=== PATIENT | male | born 1985 | race American Indian/Alaskan Native ===

== ENCOUNTER 2019-05-10 19:40 | Emergency (ER) | payer SELFPAY ==
[2019-05-10 19:55] VITALS: BP 136/94
[2019-05-10] MEDS ORDERED: ACETAMINOPHEN 500 MG TAB PO ONE (20:19)
[2019-05-10] MEDS ORDERED: IBUPROFEN 600 MG TAB PO ONE (20:19)
[2019-05-10] MEDS ORDERED: LET TOPICAL (LIDOCAINE/EPINEPHRINE/TETRACAINE) 3 ML TP ONE (20:19)
[2019-05-10] MEDS ORDERED: LIDOCAINE-MPF (1%) 10 MG/1 ML VIAL 5 ML INFILTRATI ONE (20:20)
--- NOTE | 2019-05-10 20:26 | XRay Report ---
LEFT INDEX FINGER 3 VIEWS INDICATION / CLINICAL INFORMATION: Laceration today while cutting hedges. COMPARISON: None available. FINDINGS: BONES / JOINT(S): There is a small ossific density along the mid shaft of the middle phalanx of the i ndex finger laterally, likely representing a fracture fragment. No significant arthritis. SOFT TISSUES: A bandage overlies the adjacent soft tissues. ADDITIONAL FINDINGS: None. Signer Name: Jhony Brasher MD Signed: 05/10/2019 8:22 PM Workstation Name: [id number]
[2019-05-10] MEDS ORDERED: HYDROcodone/ACETAMINOPHEN 5-325 MG TAB PO ONE (20:44)
[2019-05-10] MEDS ORDERED: HYDROcodone/ACETAMINOPHEN 5-325 MG TAB ONE (20:46)
[2019-05-10] MEDS ORDERED: NEOMY 3.5 MG/BACIT 400 UNITS/POLY B 5000 UNITS/GM OINT PACKET TP ONE ×2 (22:27→22:39)
[2019-05-10] MEDS ORDERED: cephALEXin 500 MG CAP PO ONE (22:45)
--- NOTE | 2019-05-10 22:49 | Emergency Department Report ---
Upper Extremity - HPI Chief Complaint: Wound/Laceration Stated Complaint: LT HAND INDEX FINGER LACERATION Upper Extremity: Left Index Finger (left index finger laceration, pain) Occurred When: Today Mechanism: Other (laceration with a rubber gasket inspector trimmer) Severity: severe Symptoms: Yes Pain with Movement (left index finger), Yes Laceration or Abrasion (left index finger), No Deformity, No Limited Range of Movement, No Numbness, No Weakness, No Swelling, No Bruising/Ecchymosis Other History: Patient is a 34-year-old -[place] male with no past medical history who presents to the ED with complaint of acute onset persistent painful bleeding left index finger laceration after he accidentally cut left index finger with a rubber gasket inspector trimmer about 1 hour ago. Patient states that he was using the tool to trim the hedges when it accidentally cut the left index finger. Patient states that the bleeding is not controlled at this time. Patient states that he is up-to-date with his tetanus vaccination, having received one 3 years ago when he stepped on a rafat nail. Patient denies numbness or tingling or weakness of left index finger or left hand. ED Review of Systems ROS: Stated complaint: LT HAND INDEX FINGER LACERATION Other details as noted in HPI Constitutional: denies: chills, fever Eyes: denies: eye pain, eye discharge, vision change ENT: denies: ear pain, throat pain Respiratory: denies: cough, shortness of breath, wheezing Cardiovascular: denies: chest pain, palpitations Endocrine: no symptoms reported Gastrointestinal: denies: abdominal pain, nausea, diarrhea Genitourinary: denies: urgency, dysuria Musculoskeletal: arthralgia (Bleeding left index finger laceration with pain), myalgia. denies: back pain, joint swelling Skin: other (Bleeding left index finger laceration with pain). denies: rash, lesions Neurological: denies: headache, weakness, paresthesias Psychiatric: denies: anxiety, depression Hematological/Lymphatic: denies: easy bleeding, easy bruising ED Past Medical Hx - Past Medical History Previous Medical History?: Yes Hx Asthma: Yes - Surgical History Past Surgical History?: No - Social History Smoking Status: Current Every Day Smoker Substance Use Type: Alcohol, Marijuana - Medications Home Medications: Home Medications Medication Instructions Recorded Confirmed Last Taken Type Acetaminophen/Codeine [Tylenol 1 tab PO Q6H PRN #12 tab 03/06/20 Unknown Rx /Codeine # 3 tab] Ibuprofen [Motrin] 600 mg PO Q8H PRN #24 tablet 05/10/19 Unknown Rx cephALEXin [Keflex] 500 mg PO Q6HR #40 capsule 05/10/19 Unknown Rx Upper Extremity Exam - Exam General: Vital signs noted. No distress. Alert and acting appropriately. Head and Torso: No HEENT Abnormality, No Neck Tenderness, No Chest/Lungs Abnormality, No Abdominal Tenderness, No Back Tenderness Shoulder Exam: Yes Normal Range of Motion in Shoulder, No Shoulder Tenderness, No Clavicle Tenderness, No Shoulder Deformity, No AC Joint Tenderness Arm Exam: No Arm/Humerus Tenderness, No Arm Deformity Elbow: Yes Normal Range of Motion in Elbow, No Elbow Tenderness, No Elbow Deformity Forearm: No Forearm Tenderness, No Forearm Deformity, No Pain with Pronation, No Pain with Supination Wrist: Yes Normal ROM in Wrist, No Wrist Tenderness, No Wrist Deformity, No Snuffbox Tenderness, No Pain with Axial Thumb Compression Hand: Yes Hand Tenderness (left index finger due to laceration), Yes Digit Tenderness (left index finger due to bleeding laceration), Yes Normal ROM in Digit(s), No Hand Deformity, No Digit(s) Deformity, No Tendon Dysfunction CMS Exam: Yes Broken Skin (left index finger), Yes Normal Distal Pulses, Yes Normal Capillary Refill, Yes Normal Distal Sensation Hand L/R Front: 1 - Bleeding laceration and tenderness ED Course Vital Signs 05/10/19 19:53 Temperature 97.7 F Pulse Rate 75 Respiratory 20 Rate Blood Pressure 136/94 O2 Sat by Pulse 97 Oximetry - Laceration /Wound Repair Left Distal Palm Finger Wound Location: upper extremity (Distal left index finger laceration on palmar side) Wound Length (cm): 6 Wound's Depth, Shape: irregular Wound Explored: contaminated Irrigated w/ Saline (ccs): 100 Betadine Prep?: Yes Anesthesia: 1% Lidocaine Volume Anesthetic (ccs): 7 Wound Debrided: extensive Wound Repaired With: sutures Suture Size/Type: 3:0, proline Number of Sutures: 12 Layer Closure?: No Sterile Dressing Applied?: Yes Progress: Patient tolerated the procedure well. Bleeding well controlled with suturing. The wound was cleaned thoroughly and after suturing dressed appropriately after application of Neosporin ointment. Patient was discharged home on pain medications and prophylactic antibiotics and was given a referral to the ortho pedic surgeon on-call Dr. Breaux for follow-up. Patient was advised to contact Dr. Breaux's office first thing on May for follow-up. Patient was advised to return to the ED immediately if symptoms get worse. Patient was otherwise advised to return to the ED in 2 weeks for suture removal. ED Medical Decision Making - Radiology Data Radiology results: report reviewed, image reviewed Findings [facility] [address] [place] [address] XRay Report Signed Patient: WILMAN TRACY Marily#: [id number] : 1985 Acct:[id number] Age/Sex: 34 / M ADM Date: 05/10/19 Loc: ED Attending Dr: Ordering Physician: LEANNE INFANTE Date of Service: 05/10/19 Procedure(s): XR finger(s) 2+V LT Accession Number(s): [id number] cc: LEANNE INFANTE Fluoro Time In Minutes: LEFT INDEX FINGER 3 VIEWS INDICATION / CLINICAL INFORMATION: Laceration today while cutting hedges. COMPARISON: None available. FINDINGS: BONES / JOINT(S): There is a small ossific density along the mid shaft of the middle phalanx of the index finger laterally, likely representing a fracture fragment. No significant arthritis. SOFT TISSUES: A bandage overlies the adjacent soft tissues. ADDITIONAL FINDINGS: None. Signer Name: Akilah Brasher MD Signed: 05/10/2019 8:22 PM Workstation Name: [id number] Transcribed By: RT Dictated By: Akilah Brasher MD Electronically Authenticated By: Akilah Brasher MD Signed Date/Time: 05/10/192021 DD/ 19 TD/TT: - Medical Decision Making This is a 34-year-old male who presented to the ED with bleeding painful left index finger laceration after he accidentally cut his left index finger when trimming hedges with a rubber gasket inspector trimmer about 1 hour ago. Patient is up-to-date with his tetanus vaccinations. Patient was treated for pain in the ED. Left index finger x-ray shows a small ossific density along the mid shaft of the middle phalanx of the index finger laterally, likely representing a fracture fragment. No significant arthritis. A bandage overlies the adjacent soft tissues. The bleeding left index finger laceration was cleaned thoroughly and the index finger anesthetized with a local anesthesia lidocaine 1% solution. The wound was then sutured per protocol and the patient tolerated the procedure well. Neosporin ointment was applied over the sutured wound and the left index finger laceration wound dressed appropriately. Patient was discharged home on oral antibiotics and pain medications and was also given a referral to the orthopedic surgeon Dr. Breaux for follow-up. Patient was advised to contact Dr. Breaux's office first thing in the morning on Monday, May 13, 2019 to schedule a follow-up appointment. Patient was advised to return to the ED immediately if symptoms get worse or otherwise return to the ED in 12- 14 days for suture removal. - Differential Diagnosis finger fracture; Tendon injury; Laceration; finger sprain Critical care attestation.: If time is entered above; I have spent that time in minutes in the direct care of this critically ill patient, excluding procedure time. ED Disposition Clinical Impression: Laceration of left index finger w/o foreign body w/o damage to nail Qualifiers: Encounter type: initial encounter Qualified Code(s): S61.211A - Laceration without foreign body of left index finger without damage to nail, initial enco unter Avulsion fracture of middle phalanx of finger Qualifiers: Encounter type: initial encounter Fracture type: closed Qualified Code(s): S62.629A - Displaced fracture of middle phalanx of unspecified finger, initial encounter for closed fracture Disposition: DC-01 TO HOME OR SELFCARE Is pt being admited?: No Does the pt Need Aspirin: No Condition: Stable Instructions: Finger Fracture (ED), Finger Laceration (ED) Additional Instructions: Take medication with food, drink plenty of fluids and follow-up with the orthopedic surgeon trail construction worker Dr. Breaux for further evaluation. Return to the ED immediately if symptoms get worse. Otherwise contact Dr. Breaux's office first thing on Monday, May 13, 2019 to schedule a follow-up appointment. Return to the ED in 12 to 14 days for suture removal. Prescriptions: cephALEXin [Keflex] 500 mg PO Q6HR #40 capsule Ibuprofen [Motrin] 600 mg PO Q8H PRN #24 tablet PRN Reason: Pain Acetaminophen/Codeine [Tylenol /Codeine # 3 tab] 1 tab PO Q6H PRN #12 tab PRN Reason: Pain , Severe (7-10) Referrals: AKILAH BREAUX MD [Staff Physician] - 3-5 Days Forms: Work/School Release Form(ED) Time of Disposition: 23:02 Print Language: AUSTRIAN
== END 2019-05-10 23:18 | disposition home or self-care (01) ==
LOC: ED 19:40
DX: S61.211A Laceration without foreign body of left index finger without damage to nail, initial encounter (principal); S61.303A Unspecified open wound of left middle finger with damage to nail, initial encounter; X58.XXXA Exposure to other specified factors, initial encounter; Y93.89 Activity, other specified; Y92.89 Other specified places as the place of occurrence of the external cause; Y99.8 Other external cause status
CPT/HCPCS: 99283; A6250